=== PATIENT | male | born 1945 | race Caucasian/White ===

== ENCOUNTER 2019-08-05 17:06 | Inpatient (IN) ==
[2019-08-05 17:52] LABS: Basophils % 0.5 %; Eosinophils # 0.2 K/mcL (0.0-0.6); Eosinophils % 2.2 %; Hematocrit 35.2 % (37.5-50.1); Hemoglobin 12.6 g/dL (12.9-16.9); Immature Granulocytes % 0.3 % (0-4); Lymphocytes # 1.7 K/mcL (0.6-4.6); Lymphocytes % 21.4 %; Mean Corpuscular HGB Conc 35.8 g/dL (31.6-35.5); Mean Corpuscular Hemoglobin 33.9 pg (28.0-33.3); Mean Corpuscular Volume 94.6 fL (83.0-100.0); Mean Platelet Volume 11.8 fL (9.4-12.4); Monocytes # 0.6 K/mcL (0.0-1.3); Monocytes % 8.2 %; Neutrophils # 5.2 K/mcL (1.6-8.9); Platelet Count 169 K/mcL (140-400); Red Blood Count 3.72 M/mcL (4.19-5.50); Red Cell Distribution Width 13.8 % (11.5-14.5); Segmented Neutrophils % 67.4 %; White Blood Count 7.7 K/mcL (4.3-11.1)
[2019-08-05] MEDS ORDERED: Isovue-370 500 ML BOTTLE IVP ONE ×2 (18:00→18:02)
[2019-08-05 18:06] LABS: Prothrombin Time 11.5 Seconds (9.4-12.1)
[2019-08-05 18:09] LABS: Activated Partial Thrombo Time 31.7 Seconds (26.0-36.0)
[2019-08-05 18:23] LABS: Calcium 9.3 mg/dL (8.6-10.3); Potassium 3.5 mEq/L (3.5-5.1); Troponin I 0.03 ng/mL (< 0.04)
[2019-08-05] MEDS ORDERED: 0.9 % Sodium Chloride 500 ML IVC ONE (18:38)
[2019-08-05] MEDS ORDERED: *HR* Heparin 5,000 UNIT/ML VIAL IVP PRN ×2 (20:26)
[2019-08-05] MEDS ORDERED: *HR* Heparin 5,000 UNIT/ML VIAL IVP ONE (20:26)
[2019-08-05] MEDS: Heparin 25,000 UNIT/250 ML D5W 25,000 UNIT/250 ML IV.SOLN IVC SCH (21:26)
[2019-08-05] MEDS ORDERED: Naloxone 0.4 MG/ML INJ IVP PRN (21:38)
[2019-08-06 04:00] LABS: Basophils % 0.4 %; Eosinophils # 0.1 K/mcL (0.0-0.6); Eosinophils % 2.6 %; Hematocrit 32.4 % (37.5-50.1); Hemoglobin 11.5 g/dL (12.9-16.9); Immature Granulocytes % 0.2 % (0-4); Lymphocytes # 1.2 K/mcL (0.6-4.6); Lymphocytes % 22.9 %; Mean Corpuscular HGB Conc 35.5 g/dL (31.6-35.5); Mean Corpuscular Volume 93.1 fL (83.0-100.0); Mean Platelet Volume 11.9 fL (9.4-12.4); Monocytes # 0.4 K/mcL (0.0-1.3); Monocytes % 6.8 %; Neutrophils # 3.6 K/mcL (1.6-8.9); Platelet Count 129 K/mcL (140-400); Red Blood Count 3.48 M/mcL (4.19-5.50); Red Cell Distribution Width 13.6 % (11.5-14.5); Segmented Neutrophils % 67.1 %; White Blood Count 5.3 K/mcL (4.3-11.1)
[2019-08-06 04:19] LABS: BUN/Creatinine Ratio 12 (6-26); Blood Urea Nitrogen 17 mg/dL (8-23); Carbon Dioxide 23 mEq/L (23-29); Chloride 105 mEq/L (98-107); Glucose 108 mg/dL (70-105); Osmolality,Calculated 294 (280-300); Potassium 2.9 mEq/L (3.5-5.1); Sodium 141 mEq/L (136-145); eGFR For African Americans > 60 (> 60); eGFR For Non-African Americans 50 (> 60)
[2019-08-06] MEDS ORDERED: Potassium Chloride 20 MEQ, Lidocaine 1% 2 ML in 0.9 % Sodium Chloride 250 ML IVPB ONE (07:54)
[2019-08-06] MEDS ORDERED: Lisinopril 20 MG TABLET PO SCH (10:00)
[2019-08-06] MEDS: Aspirin 81 MG TAB.CHEW PO SCH (10:52)
[2019-08-06 15:16] LABS: Magnesium 1.4 mg/dL (1.6-2.6)
[2019-08-06] MEDS: hydrALAZINE 25 MG TABLET PO SCH ×2 (16:37→23:17)
[2019-08-06] MEDS: Latanoprost 2.5 ML BOTTLE LEFT EYE SCH (19:55)
[2019-08-06] MEDS: Heparin 25,000 UNIT/250 ML D5W 25,000 UNIT/250 ML IV.SOLN IVC SCH (23:16)
[2019-08-07 04:55] LABS: Basophils % 0.4 %; Eosinophils # 0.1 K/mcL (0.0-0.6); Eosinophils % 2.5 %; Hematocrit 32.1 % (37.5-50.1); Lymphocytes # 1.4 K/mcL (0.6-4.6); Lymphocytes % 29.9 %; Mean Corpuscular HGB Conc 34.3 g/dL (31.6-35.5); Mean Corpuscular Hemoglobin 33.3 pg (28.0-33.3); Mean Corpuscular Volume 97.3 fL (83.0-100.0); Mean Platelet Volume 12.4 fL (9.4-12.4); Monocytes # 0.4 K/mcL (0.0-1.3); Monocytes % 8.3 %; Neutrophils # 2.8 K/mcL (1.6-8.9); Platelet Count 116 K/mcL (140-400); Red Cell Distribution Width 13.8 % (11.5-14.5); Segmented Neutrophils % 58.9 %; White Blood Count 4.8 K/mcL (4.3-11.1)
[2019-08-07 05:21] LABS: BUN/Creatinine Ratio 12 (6-26); Blood Urea Nitrogen 16 mg/dL (8-23); Calcium 9.1 mg/dL (8.6-10.3); Carbon Dioxide 21 mEq/L (23-29); Chloride 111 mEq/L (98-107); Glucose 86 mg/dL (70-105); Osmolality,Calculated 290 (280-300); Sodium 140 mEq/L (136-145); eGFR For African Americans > 60 (> 60); eGFR For Non-African Americans 52 (> 60)
[2019-08-07] MEDS ORDERED: Lisinopril 20 MG TABLET PO SCH (09:00)
[2019-08-07] MEDS: hydrALAZINE 25 MG TABLET PO SCH ×3 (12:47→22:57)
[2019-08-07] MEDS: Aspirin 81 MG TAB.CHEW PO SCH (13:30)
[2019-08-07] MEDS: Latanoprost 2.5 ML BOTTLE LEFT EYE SCH (19:48)
[2019-08-08 01:48] LABS: Hematocrit 32.8 % (37.5-50.1); Hemoglobin 11.3 g/dL (12.9-16.9); Mean Corpuscular HGB Conc 34.5 g/dL (31.6-35.5); Mean Corpuscular Hemoglobin 33.1 pg (28.0-33.3); Mean Corpuscular Volume 96.2 fL (83.0-100.0); Mean Platelet Volume 12.5 fL (9.4-12.4); Platelet Count 130 K/mcL (140-400); Red Blood Count 3.41 M/mcL (4.19-5.50); Red Cell Distribution Width 13.6 % (11.5-14.5); White Blood Count 4.3 K/mcL (4.3-11.1)
[2019-08-08 02:12] LABS: BUN/Creatinine Ratio 12 (6-26); Blood Urea Nitrogen 16 mg/dL (8-23); Calcium 9.3 mg/dL (8.6-10.3); Carbon Dioxide 22 mEq/L (23-29); Chloride 107 mEq/L (98-107); Glucose 76 mg/dL (70-105); Osmolality,Calculated 288 (280-300); Potassium 3.7 mEq/L (3.5-5.1); Sodium 139 mEq/L (136-145); eGFR For African Americans > 60 (> 60); eGFR For Non-African Americans 54 (> 60)
[2019-08-08] MEDS: Heparin 25,000 UNIT/250 ML D5W 25,000 UNIT/250 ML IV.SOLN IVC SCH (02:54)
[2019-08-08] MEDS ORDERED: Vancomycin 1,000 MG, Sodium Chloride IRRigation 1,000 ML IR ONE (06:00)
[2019-08-08] MEDS ORDERED: Heparin 1,000 UNITS/500 mL 500 ML ONE ×2 (07:09→07:11)
[2019-08-08] MEDS ORDERED: Bupivacaine-MPF 0.25% 10 ML VIAL ONE (07:11)
[2019-08-08] MEDS ORDERED: Protamine Sulfate 50 MG/5 ML VIAL IVP ONE (07:11)
[2019-08-08] MEDS ORDERED: Lidocaine 1% 20 ML MDV ONE (07:11)
[2019-08-08] MEDS ORDERED: *HR* Propofol 200 MG/20 ML VIAL IVP ONE ×2 (07:14→07:18)
[2019-08-08] MEDS ORDERED: Neostigmine Methylsulfate 3 MG/3 ML SYRINGE ONE (07:14)
[2019-08-08] MEDS ORDERED: *HR* FentaNYL (PF) 100 MCG/2 ML VIAL ONE (07:14)
[2019-08-08] MEDS ORDERED: Dexamethasone 4 MG/ML VIAL ONE (07:14)
[2019-08-08] MEDS ORDERED: *HR* Heparin 5,000 UNIT/ML VIAL ONE (07:14)
[2019-08-08] MEDS ORDERED: *HR* Midazolam HCl 2 MG/2 ML VIAL ONE (07:14)
[2019-08-08] MEDS ORDERED: Ondansetron 4 MG/2 ML VIAL ONE (07:14)
[2019-08-08] MEDS ORDERED: *HR* Rocuronium Bromide 50 MG/5 ML VIAL ONE (07:14)
[2019-08-08] MEDS ORDERED: Lidocaine -MPF 2% 2 ML VIAL ONE (07:14)
[2019-08-08] MEDS ORDERED: *HR* Remifentanil 2 MG VIAL IVP ONE (07:15)
[2019-08-08] MEDS ORDERED: *HR* Phenylephrine 10 MG/ML VIAL ONE (07:28)
[2019-08-08] MEDS ORDERED: CeFAZolin Syr 2,000MG/20 ML 2,000 MG/20 ML SYRINGE IVPB ONE (07:41)
[2019-08-08] MEDS ORDERED: Lidocaine HCL 4 ML Topical Solution (Laryng-O-Jet Kit Sterile Pak) TP ONE (07:55)
[2019-08-08] MEDS ORDERED: EPHEDrine 50 MG/ML VIAL ONE (08:06)
[2019-08-08] MEDS ORDERED: Nitroglycerin 0 MG/0 ML INFUS..BTL IVC ONE (09:21)
[2019-08-08] MEDS ORDERED: niCARdipine 0 MG/0 ML MLS IVC ONE (09:21)
[2019-08-08] MEDS ORDERED: NiCARdipine 2.5 MG/10 ML Syringe IVPB ONE (09:21)
[2019-08-08] MEDS ORDERED: *HR* FentaNYL (PF) 100 MCG/2 ML VIAL IVP PRN (10:13)
[2019-08-08] MEDS ORDERED: *HR* OxyCODONE Immed Rel 5 MG TABLET PO PRN ×2 (10:13→11:32)
[2019-08-08] MEDS ORDERED: *HR* Labetalol 20 MG/4 ML SYRINGE IVP PRN ×2 (10:13→11:32)
[2019-08-08] MEDS ORDERED: Acetaminophen IV 1,000 MG/100 ML INFUS..BTL IVPB ONE (10:13)
[2019-08-08] MEDS ORDERED: Ondansetron 4 MG/2 ML VIAL IVP ONE (10:13)
[2019-08-08] MEDS ORDERED: Ringers Solution, Lactated 1,000 ML IVC SCH (10:15)
[2019-08-08] MEDS ORDERED: *HR* HYDROcodone/Acet 5/325 mg TABLET PO PRN (11:32)
[2019-08-08] MEDS ORDERED: Acetaminophen 325 MG TABLET PO PRN (11:32)
[2019-08-08] MEDS ORDERED: Ondansetron 4 MG/2 ML VIAL IVP PRN (11:32)
[2019-08-08] MEDS ORDERED: Naloxone 0.4 MG/ML INJ IVP PRN (11:32)
[2019-08-08] MEDS ORDERED: 0.9 % Sodium Chloride 1,000 ML IVC SCH ×2 (11:32→13:00)
[2019-08-08] MEDS: *HR* Metoprolol 5 MG/5 ML VIAL IVP SCH ×2 (11:57→17:51)
[2019-08-08] MEDS ORDERED: 0.9 % Sodium Chloride 500 ML IVC ONE (13:30)
[2019-08-08] MEDS: ceFAZolin 2,000 MG in 0.9 % Sodium Chloride 100 ML IVPB SCH ×2 (14:22→21:18)
[2019-08-08] MEDS ORDERED: Latanoprost 2.5 ML BOTTLE LEFT EYE SCH (21:00)
[2019-08-09] MEDS: *HR* Metoprolol 5 MG/5 ML VIAL IVP SCH ×2 (01:41→05:51)
[2019-08-09 02:00] LABS: Hematocrit 29.1 % (37.5-50.1); Hemoglobin 9.8 g/dL (12.9-16.9)
[2019-08-09] MEDS ORDERED: *HR* Heparin 5,000 UNIT/ML VIAL SQ SCH (06:00)
[2019-08-09 07:41] VITALS: BP 139/83
[2019-08-09] MEDS ORDERED: Aspirin 81 MG TAB.CHEW PO SCH (09:00)
== END 2019-08-09 10:02 | disposition home or self-care (01) | DRG 39 ==
LOC: EMEROOARM 17:06 → 2NNU 17:06
PROVIDERS: ADMIT Student in an Organized Health Care Education/Training Program; ATTEND Student in an Organized Health Care Education/Training Program